=== PATIENT | female | born 1980 | race Two or more races ===

== ENCOUNTER 2021-04-09 14:34 | Emergency (ER) | payer OTHER ==
[~2021-04-09] VITALS: Ht 157.5 cm; Wt 52.2 kg
--- NOTE | 2021-04-09 14:40 | NUR ---
STARTED IVHL LAC 18G
--- NOTE | 2021-04-09 14:41 | NUR ---
[facility], the patient C/O right eat pain with ass. dizziness Addendum: 04/09/21 at 1620 by LÁZARO CORRECTION: LEFT EAR PAIN
[2021-04-09] MEDS ORDERED: ONDANSETRON HCL/PF 4 MG/2 ML VIAL IVP ONE (15:30)
[2021-04-09] MEDS ORDERED: IV NS 0.9% 1,000 ML BAG IV ONE (15:30)
[2021-04-09] MEDS ORDERED: ACETAMINOPHEN ES 500 MG TABLET PO ONE (15:30)
[2021-04-09] MEDS ORDERED: ONDANSETRON HCL/PF 4 MG/2 ML VIAL ONE (15:31)
[2021-04-09] MEDS ORDERED: ACETAMINOPHEN ES 500 MG TABLET ONE (15:31)
--- NOTE | 2021-04-09 15:41 | NUR ---
PER PT NOT ABLE TO SWALLOW AT THIS TIME. RETURNED TYLENOL 1000MG
[2021-04-09] MEDS ORDERED: BACITRACIN ZINC OINT PACKET 1 EA PACKET TP ONE (16:00)
[2021-04-09] MEDS ORDERED: TDAP [DIPH/PERTUSSIS/TET] 0.5 ML VIAL IM ONE (16:00)
[2021-04-09] MEDS ORDERED: KETOROLAC TROMETHAMINE INJ 30 MG/ML VIAL ONE (16:28)
[2021-04-09] MEDS ORDERED: AZITHROMYCIN 250 MG TABLET PO ONE (16:30)
[2021-04-09] MEDS ORDERED: KETOROLAC TROMETHAMINE INJ 30 MG/ML VIAL IV ONE (16:30)
--- NOTE | 2021-04-09 16:38 | NUR ---
PT UNABLE TO TAKE PO ZITHROMAX. WILL CHANGE TO IV
[2021-04-09] MEDS ORDERED: AZITHROMYCIN 500 MG in IV D5W 250 ML IV ONE (17:00)
[2021-04-09] MEDS ORDERED: ONDA4TAB5 PO (17:29)
[2021-04-09] MEDS ORDERED: AZIT250T PO (17:29)
[2021-04-09] MEDS ORDERED: ACET-2605 PO (17:29)
--- NOTE | 2021-04-09 17:42 | NUR ---
PT LAYING IN BED, REPORTS PAIN LEVEL AHS DECREASED AND IS COMFORTABLE
[2021-04-09 18:09] VITALS: BP 128/82
--- NOTE | 2021-04-09 18:10 | NUR ---
Patient discharged to home in stable condition. Written and verbal after care instructions given. Patient verbalizes understanding of instruction.
--- NOTE | 2021-04-09 18:14 | NUR ---
IV removed. Catheter intact and site benign. Pressure and 4x4 applied to site. No bleeding noted.
--- NOTE | 2021-04-13 13:37 | NUR ---
THE PATIENT MADE AWARE THAT SHE IS COVID POSITIVE. THE PATIENT IS PROVIDED EDUCATIONS AND SHE VERBALIZED UNDERSTANDING.
== END 2021-04-09 18:10 | disposition home or self-care (01) ==
LOC: ER 14:41
DX: U07.1 COVID-19 (principal); J12.82 Pneumonia due to coronavirus disease 2019; R03.0 Elevated blood-pressure reading, without diagnosis of hypertension; Z90.710 Acquired absence of both cervix and uterus
CPT/HCPCS: 71045; 87426; 87804; 96361; 96365; 96375 ×2; 99284; C9803; J0456; J1885; J2405; U0003; J7060